=== PATIENT | female | born 1990 | race Caucasian/White ===

== ENCOUNTER 2018-03-21 07:22 | Day surgery (SDC) | payer BC ==
[2018-03-20 10:53] VITALS: BMI 36.5
--- NOTE | 2018-03-21 04:52 | HP ---
DATE OF ADMISSION: 03/21/2018 SHORT STAY HISTORY AND PHYSICAL HISTORY OF PRESENT ILLNESS: This is a 27-year-old female referred to me for evaluation of abdominal pain and also history of rectal bleeding. Her abdominal pain is intermittent. The pain is actually over the lower abdomen. She has had pain over the last 6 months off and on. The patient also gives history of rectal bleeding off and on. The patient comes for a colonoscopy because of abdominal pain and hematochezia. ALLERGIES: None. MEDICAL ILLNESS: None. SOCIAL HISTORY: The patient does not smoke, but drinks alcohol socially. FAMILY HISTORY: Father, Crohn's disease. PHYSICAL EXAMINATION: VITAL SIGNS: Pulse is 70, blood pressure 130/70. HEENT: Conjunctivae clear. NECK: Supple. CARDIOVASCULAR SYSTEM: First and second heart sounds normal. LUNGS: Clear to auscultate. ABDOMEN: Soft to palpate. Abdomen is mildly tender across the lower abdomen. There is no rebound o r guarding. EXTREMITIES: Reveal no edema. ADMITTING DIAGNOSIS: A 27-year-old female with abdominal cramping across the lower abdomen. She has had negative cardiac evaluation. The patient also has rectal bleeding off and on. She also has fam jr history of Crohn's disease in her father. PLAN: Colonoscopy.
--- NOTE | 2018-03-21 10:10 | OP ---
DATE OF PROCEDURE: 03/21/2018 SURGEON: Ashok Jennings M.D. OPERATIVE PROCEDURE: Ileocolonoscopy . PREOPERATIVE DIAGNOSIS: This is a 27-year-old female with abdominal pain across the lower abdomen over the last 6 months. The pain is intermittent. She also has history of rectal bleeding. Family history of Crohn's disease. The patient had seen Dr. Alden Wen for a CLIENT MANAGER evaluation. T he CLIENT MANAGER evaluation was negative. The patient undergoing a colonoscopy. POSTOPERATIVE DIAGNOSIS: Normal colonoscopy except for hemorrhoids. PROCEDURE IN DETAIL: The patient was placed on her left lateral position and was given sedation by A nesthesia Department. A rectal exam was done before the scope was advanced into the rectum. No lesi ons felt on rectal exam. A [employer]ax video colonoscope was introduced into the rectum and advanced all the way to cecum. The prep was excellent. The mucosa appears normal throughout the colon with candy l vascular pattern. The appendiceal orifice, ileocecal valve, cecum, no pathology seen. The scope a dvanced to terminal ileum and the ileal mucosa appeared normal. Advanced the scope in the ileum to t he ascending colon, hepatic flexure, transverse colon, splenic flexure, descending colon, and sigmoid colon, no pathology seen. Rectum showed hemorrhoids. DISCHARGE PLANNING: This is a 27-year-old female with abdominal pain and hematochezia. Th e patient underwent colonoscopy and the colonoscopy was basically negative. She does have hemorrhoid s. DISCHARGE RECOMMENDATIONS: 1. The patient advised to call me if she has abdominal pain or fever. 2. In the absence of any of her symptoms she will come back to me next week.
[2018-03-21] MEDS ORDERED: ePHEDrine/0.9% NaCl/PF SYRINGE 50 mg/10 ml ONE (15:53)
[2018-03-21] MEDS ORDERED: PROPOFOL 200 MG/20 ML VIAL ONE (15:53)
[2018-03-21] MEDS ORDERED: Lidocaine 1% PF 5 ML VIAL ONE (15:53)
[2018-03-21] MEDS ORDERED: PHENYLEPHRINE-NS 100 MCG/ML 10 ML SYRINGE ONE (15:53)
== END 2018-03-21 10:25 | disposition home or self-care (01) ==
LOC: SDC 07:22
PROVIDERS: ATTEND Internal Medicine Gastroenterology
PROC: 0DJD8ZZ Inspection of Lower Intestinal Tract, Via Natural or Artificial Opening Endoscopic (ICD-10-PCS; principal; 2018-03-21)
DX: K62.5 Hemorrhage of anus and rectum (principal)
CPT/HCPCS: J2001; J2704